=== PATIENT | female | born 1985 | race Caucasian/White ===

== ENCOUNTER → 2022-06-07 13:08 | Outpatient (CLI) | payer BC, SELFPAY ==
--- NOTE | ~2022-06-07 | US_ITS ---
EXAMINATION: US pelvic complete DATE: 06/07/2022 13:41 INDICATION: Abnormal uterine bleeding Comparison:No prior studies for comparison. TECHNIQUE: Multiple transabdominal sonographic images of the pelvis performed. FINDINGS: The uterus measures 10.1 x 3.9 x 5.2 cm. The endometrial complex measures 1.3 cm. The right ovary measures 3.4 x 2.4 x 3.2 cm and the left ovary measures 3.2 x 3.2 x 4.5 cm. There ar e small follicles in each ovary. Normal doppler signal in both ovaries. There is no free fluid in the pelvis. There are no abnormal masses seen on either side. IMPRESSION: 1. Endometrial thickening measuring 1.3 cm. Reviewed, dictated and finalized at location B. [facility] [employer] [employer] [facility]
== END ==
PROVIDERS: PCP Nurse Practitioner; Visit Provider Nurse Practitioner
DX: N93.8 Other specified abnormal uterine and vaginal bleeding (principal)
CPT/HCPCS: 76856